=== PATIENT | male | born 1950 | race Caucasian/White ===

== ENCOUNTER 2025-10-12 19:12 | Inpatient (IN) | payer MEDICARE, OTHER ==
[~2025-10-12] VITALS: Ht 185.4 cm; Wt 83.9 kg
[2025-10-12] MEDS: IV NS 0.9% 1,000 ML BAG IV ONE (19:54)
[2025-10-12 20:08] LABS: PLATELET COUNT (AUTO) 148 K/uL (150-450); RED BLOOD CELL COUNT(AUTO) 3.98 MIL/uL (4.5-6.0); RED CELL DISTRIBUTION WIDTH 13.9 % (11.5-15.0); WHITE BLOOD COUNT (AUTO) 6.5 K/uL (4.3-11.0)
[2025-10-12 20:14] LABS: CALCIUM, SERUM 9.0 mg/dL (8.5-10.1); CREATININE 1.9 mg/dL (0.6-1.3); SODIUM SERUM 142 mmol/L (136-145); UREA NITROGEN, BLOOD 41 mg/dL (7-18)
[2025-10-12 20:18] LABS: INR 1.24 (0.91-1.10)
[2025-10-12 20:27] LABS: ALCOHOL, BLOOD < 3 mg/dL (0-10); ASPARTATE AMINOTRANSFERASE 62 U/L (15-37); TOTAL PROTEIN, SERUM 7.2 g/dL (6.4-8.2)
[2025-10-12 20:55] LABS: APPEARANCE,URINE SLIGHTLY CLOUDY (CLEAR); BLOOD, URINE 3+ Ery/uL (NEGATIVE); LEUKOCYTE ESTERASE ,URINE NEGATIVE (NEGATIVE); NITRITE, URINE NEGATIVE (NEGATIVE); UGLUCOSE NEGATIVE (NEGATIVE)
[2025-10-12 21:06] LABS: ADD URINE CULTURE YES
[2025-10-12 21:07] LABS: COARSE GRANULAR CASTS,URINE Moderate /LPF (None Seen)
[2025-10-12 21:12] LABS: AMPHETAMINE, URINE NEGATIVE (NEGATIVE); BARBITURATE, URINE NEGATIVE (NEGATIVE); BENZODIAZEPINE, URINE NEGATIVE (NEGATIVE); CANNABINOID, URINE NEGATIVE (NEGATIVE); COCCAINE, URINE NEGATIVE (NEGATIVE); OPIATE, URINE NEGATIVE (NEGATIVE)
[2025-10-12] MEDS ORDERED: LORAZEPAM INJ 2 MG/ML VIAL ONE (21:55)
[2025-10-12] MEDS: LORAZEPAM INJ 2 MG/ML VIAL IV ONE (22:00)
[2025-10-12] MEDS ORDERED: APIX5TAB PO (23:41)
[2025-10-12] MEDS ORDERED: MELA3TAB41 PO (23:41)
[2025-10-12] MEDS ORDERED: LORA-259 PO (23:41)
[2025-10-12] MEDS ORDERED: OLAN2.5T3 PO (23:41)
[2025-10-12] MEDS ORDERED: LEVO75TA7 PO (23:41)
[2025-10-12] MEDS ORDERED: IPRA3AMP23 IH (23:41)
[2025-10-12] MEDS ORDERED: ROSU20TA32 PO (23:41)
[2025-10-12] MEDS ORDERED: FLUT1BLS12 IH (23:41)
[2025-10-12] MEDS ORDERED: ASPI-1169 PO (23:41)
[2025-10-12] MEDS ORDERED: MEMA10TA PO (23:41)
[2025-10-12] MEDS ORDERED: DIPH50CA4 PO (23:41)
[2025-10-12] MEDS ORDERED: SENN-261 PO (23:41)
[2025-10-12] MEDS ORDERED: ACET325T53 PO (23:41)
[2025-10-13 00:30] VITALS: BP 105/71; TEMP 98.1; O2SAT 96
[2025-10-13] MEDS ORDERED: ACETAMINOPHEN 325 MG TABLET PO PRN ×2 (01:00→11:30)
[2025-10-13] MEDS ORDERED: MAGNESIUM HYDROXIDE 30 ML UDC PO PRN (01:00)
[2025-10-13] MEDS ORDERED: MAG HYDROX/AL HYDROX/SIMETH 30 ML UDC PO PRN (01:00)
[2025-10-13] MEDS ORDERED: LORAZEPAM 0.5 MG TABLET PO PRN (01:00)
[2025-10-13] MEDS: BLOOD SUGAR DIAGNOSTIC 1 EACH STRIP IN ONE (01:08)
[2025-10-13 02:13] VITALS: BP 105/71; TEMP 98.1; O2SAT 96
[2025-10-13 08:00] VITALS: BP 100/52; TEMP 97.7; O2SAT 97
[2025-10-13] MEDS: APIXABAN 5 MG TABLET PO SCH (11:56)
[2025-10-13] MEDS: ASPIRIN 81 MG TAB.CHEW PO SCH (11:56)
[2025-10-13] MEDS: SENNOSIDES 8.6 MG TABLET PO SCH (11:56)
[2025-10-13] MEDS: LEVOTHYROXINE SODIUM 75 MCG TABLET PO SCH (11:56)
[2025-10-13] MEDS ORDERED: ALBUTEROL FS 2.5 MG/3 ML VIAL.NEB NEB PRN (12:00)
[2025-10-13] MEDS ORDERED: IPRATROPIUM NEB FS 0.5 MG/2.5 ML AMPUL.NEB NEB PRN (12:00)
[2025-10-13] MEDS: LORAZEPAM 0.5 MG TABLET PO PRN (13:26)
[2025-10-13 16:00] VITALS: BP 100/65; TEMP 97.9; O2SAT 95
[2025-10-13] MEDS: MOMETASONE/FORMOTEROL 8.8 GM HFA.AER.AD IH SCH (16:51)
[2025-10-13] MEDS: ATORVASTATIN 40 MG TABLET PO SCH (21:32)
[2025-10-13] MEDS: OLANZAPINE 5 MG TABLET PO SCH (22:57)
[2025-10-14 08:00] VITALS: BP 99/66; TEMP 98.4; O2SAT 97
[2025-10-14 08:06] LABS: PLATELET COUNT (AUTO) 170 K/uL (150-450); RED BLOOD CELL COUNT(AUTO) 4.09 MIL/uL (4.5-6.0); RED CELL DISTRIBUTION WIDTH 14.1 % (11.5-15.0); WHITE BLOOD COUNT (AUTO) 7.9 K/uL (4.3-11.0)
[2025-10-14] MEDS: OLANZAPINE 2.5 MG TABLET PO SCH (09:06)
[2025-10-14 09:13] LABS: ASPARTATE AMINOTRANSFERASE 73.0 U/L (15-37); CALCIUM, SERUM 8.7 mg/dL (8.5-10.1); CREATININE 1.4 mg/dL (0.6-1.3); SODIUM SERUM 142.0 mmol/L (136-145); TOTAL PROTEIN, SERUM 7.3 g/dL (6.4-8.2); UREA NITROGEN, BLOOD 35.0 mg/dL (7-18)
[2025-10-14 09:17] LABS: PHOSPHORUS 2.6 mg/dL (2.5-4.9)
[2025-10-14 09:30] LABS: CREATINE KINASE, TOTAL 1210.0 U/L (39-308); LDL 38.0 mg/dL (0-99)
[2025-10-14 14:00] VITALS: BP 91/69; TEMP 98.1; O2SAT 96
[2025-10-14 20:00] VITALS: BP 90/63; TEMP 97.8; O2SAT 98
[2025-10-14] MEDS: OLANZAPINE 5 MG TABLET PO SCH (21:29)
[2025-10-15 05:07] LABS: PTH, INTACT 23 pg/mL (15-65)
[2025-10-15] MEDS: IV NS 0.9% 1,000 ML BAG IV ONE (10:22)
[2025-10-15] MEDS: ENSURE ENLIVE 237 ML LIQUID (VANILLA) PO SCH (13:07)
[2025-10-15 16:00] VITALS: BP 104/64; TEMP 98; O2SAT 97
[2025-10-15 20:49] VITALS: BP 101/61; TEMP 98; O2SAT 97
[2025-10-15] MEDS: TEMAZEPAM 7.5 MG CAPSULE PO PRN (22:48)
[2025-10-16 08:00] VITALS: BP 94/74; TEMP 97.8; O2SAT 92
[2025-10-16 16:00] VITALS: BP 100/66; TEMP 97.9; O2SAT 96
[2025-10-16 19:54] VITALS: BP 101/66; TEMP 98.2; O2SAT 96
[2025-10-17 07:58] LABS: PLATELET COUNT (AUTO) 187 K/uL (150-450); RED BLOOD CELL COUNT(AUTO) 4.07 MIL/uL (4.5-6.0); RED CELL DISTRIBUTION WIDTH 14.4 % (11.5-15.0); WHITE BLOOD COUNT (AUTO) 8.0 K/uL (4.3-11.0)
[2025-10-17 08:00] VITALS: BP 127/65; TEMP 98.6; O2SAT 98
[2025-10-17 08:21] LABS: ASPARTATE AMINOTRANSFERASE 124.0 U/L (15-37); CALCIUM, SERUM 8.4 mg/dL (8.5-10.1); CREATININE 1.4 mg/dL (0.6-1.3); PHOSPHORUS 3.1 mg/dL (2.5-4.9); SODIUM SERUM 143.0 mmol/L (136-145); TOTAL PROTEIN, SERUM 7.3 g/dL (6.4-8.2); UREA NITROGEN, BLOOD 26.0 mg/dL (7-18)
[2025-10-17] MEDS: IV NS 0.9% 1,000 ML IV ONE (13:04)
[2025-10-17 16:00] VITALS: BP 99/64; TEMP 98.4; O2SAT 100
[2025-10-17] MEDS ORDERED: ALBU2.5V13 NEB (18:46)
[2025-10-17] MEDS ORDERED: MAGN400O6 PO (18:46)
[2025-10-17] MEDS ORDERED: MAG355OR18 PO (18:46)
[2025-10-17] MEDS ORDERED: MOME13HF2 IH (18:46)
[2025-10-17] MEDS ORDERED: OLAN2.5T3 PO (18:46)
[2025-10-17] MEDS ORDERED: TEMA7.5C12 PO (18:46)
[2025-10-17] MEDS ORDERED: ATOR80TA PO (18:46)
[2025-10-17] MEDS ORDERED: OLAN5TAB3 PO (18:46)
[2025-10-18 08:09] LABS: *SPE A/G RATIO 1.0 (0.7-1.7); *SPE ALBUMIN 3.5 g/dL (2.9-4.4); *SPE ALPHA-1-GLOBULIN 0.3 g/dL (0.0-0.4); *SPE ALPHA-2-GLOBULIN 0.7 g/dL (0.4-1.0); *SPE BETA GLOBULIN 1.2 g/dL (0.7-1.3); *SPE GLOBULIN, TOTAL 3.4 g/dL (2.2-3.9); *SPE M-SPIKE Not Observed g/dL (Not Observed); *SPE PROTEIN TOTAL 6.9 g/dL (6.0-8.5); *SPEGAMMA GLOBULIN 1.2 g/dL (0.4-1.8)
== END 2025-10-17 16:24 | disposition admitted as inpatient to this hospital (09) | DRG 885 ==
LOC: ER 19:18 → GPS 23:41
PROVIDERS: ADMIT Nurse Practitioner Psychiatric/Mental Health; ATTEND Internal Medicine
DX: F29 Unspecified psychosis not due to a substance or known physiological condition (principal); N18.9 Chronic kidney disease, unspecified; N17.9 Acute kidney failure, unspecified; M62.82 Rhabdomyolysis; Z79.01 Long term (current) use of anticoagulants; F03.911 Unspecified dementia, unspecified severity, with agitation; J44.9 Chronic obstructive pulmonary disease, unspecified; F32.A Depression, unspecified; E03.9 Hypothyroidism, unspecified; I12.9 Hypertensive chronic kidney disease with stage 1 through stage 4 chronic kidney disease, or unspecified chronic kidney disease; D64.9 Anemia, unspecified; F03.92 Unspecified dementia, unspecified severity, with psychotic disturbance; F03.93 Unspecified dementia, unspecified severity, with mood disturbance; F03.94 Unspecified dementia, unspecified severity, with anxiety; F41.9 Anxiety disorder, unspecified; Z79.51 Long term (current) use of inhaled steroids; Z79.890 Hormone replacement therapy; Z79.82 Long term (current) use of aspirin; E78.5 Hyperlipidemia, unspecified; M89.8X9 Other specified disorders of bone, unspecified site; E86.9 Volume depletion, unspecified
CPT/HCPCS: 36415; 70450-TC; 71045-TC; 76770-TC; 80048-TC; 80053-TC; 80061-TC; 80076-TC; 81001; 82550-TC; 82553; 82962-TC; 83735-TC; 83970; 84100-TC; 84155; 84165; 84443-TC; 84484-TC; 85025-TC; 85730-TC; 87081-TC; 87086-TC; 97110-TC; 97116-TC; 97530-TC; A4223; G0480; J1200; J2060; J7030; Q0163